=== PATIENT | male | born 1930 | race Caucasian/White ===

== ENCOUNTER 2018-02-19 03:20 | Inpatient (IN) | payer MEDICARE ==
[2018-02-19] VITALS (8 sets, daily range): BP systolic 93–138; BP diastolic 46–74
[~2018-02-19] VITALS: Wt 82.7 kg
[2018-02-19 04:12] LABS: BASO # 0.1 10*3/uL (0.0-0.1); BASO % 0.8 % (0.0-1.0); EOS # 0.1 10*3/uL (0.0-0.4); EOS % 0.8 % (1.0-4.0); HEMOGLOBIN 17.7 g/dl (14.0-18.0); LYMPH # 0.7 10*3/uL (1.3-4.4); LYMPH % 7.4 % (27.0-41.0); MEAN CELL VOLUME 91.7 fl (80.0-94.0); MEAN CORPUSCULAR HGB 30.1 pg (27.0-31.0); MEAN CORPUSCULAR HGB CONC 32.8 g/dl (33.0-37.0); MEAN PLATELET VOLUME 10.5 fl (9.6-12.3); MONO # 0.9 10*3/uL (0.1-1.0); MONO % 9.9 % (3.0-9.0); NEUT # 7.5 10*3/uL (2.3-7.9); NEUT % 80.8 % (47.0-73.0); PLATELET COUNT AUTOMATED 163 10*3/uL (130-400); RED BLOOD COUNT 5.89 10*6/uL (4.50-5.90); RED CELL DISTRI WIDTH 13.9 % (0-14.5); WHITE BLOOD COUNT 9.3 10*3/uL (4.8-10.8)
[2018-02-19 04:27] LABS: ACT PARTIAL THROMBO TIME 20.7 SECONDS (20.8-31.5)
[2018-02-19 04:29] LABS: ALBUMIN 4.2 gm/dl (3.1-4.5); ALKALINE PHOSPHATASE 67 U/L (45-117); BUN 25 mg/dl (7-24); CHLORIDE 104 mmol/L (98-107); CREATININE 2.01 mg/dL (0.70-1.30); POTASSIUM 5.3 mmol/L (3.5-5.1); SGOT/AST 63 IU/L (3-35); SGPT/ALT 89 U/L (12-78); SODIUM 138 mmol/L (136-145); TOTAL PROTEIN 8.3 gm/dL (6.4-8.2)
[2018-02-19 04:30] LABS: TROPONIN I < 0.015 ng/ml (<0.045)
[2018-02-19] MEDS ORDERED: FINASTERIDE5 M1 PO (04:46)
[2018-02-19] MEDS ORDERED: METOPROLOL TART50 M1 PO (04:46)
[2018-02-19] MEDS ORDERED: MEMANTINE HCL5 MG PO (04:47)
[2018-02-19] MEDS ORDERED: APRESOLINE10 MG PO (04:50)
[2018-02-19] MEDS ORDERED: LASIX20 MG PO (04:50)
[2018-02-19] MEDS ORDERED: ZOLOFT25 MG PO (04:51)
[2018-02-19] MEDS ORDERED: SIMVASTATIN20 MG PO (04:51)
[2018-02-19] MEDS ORDERED: VITAMIN B1250 MCG PO (04:52)
[2018-02-19] MEDS ORDERED: ARICEPT10 M1 PO (04:52)
[2018-02-19] MEDS ORDERED: PROBIOTIC250 MG PO (04:53)
[2018-02-19] MEDS ORDERED: VITAMIN D32000 UNIT PO (04:53)
[2018-02-19] MEDS ORDERED: COUMADIN3 M1 PO (04:53)
[2018-02-19] MEDS ORDERED: VITAMIN B COMP1 EAC1 PO (04:54)
[2018-02-19] MEDS ORDERED: KLOR-CON SPRIN10 MEQ PO (04:55)
[2018-02-19 07:14] LABS: BUN 25 mg/dl (7-24); CHLORIDE 106 mmol/L (98-107); CHOLESTEROL 152 mg/dL (<200); CREATININE 1.73 mg/dL (0.70-1.30); HDL CHOLESTEROL 62 mg/dl (40-60); LDL CHOLESTEROL 62 mg/dL (9-159); POTASSIUM 4.4 mmol/L (3.5-5.1); SODIUM 139 mmol/L (136-145); TRIGLYCERIDES 138 mg/dl (<150); VLDL CHOLESTEROL 28 mg/dL (6-40)
[2018-02-19 07:20] LABS: TROPONIN I < 0.015 ng/ml (<0.045)
[2018-02-19 08:20] LABS: VITAMIN D, 25-HYDROXY 32.9 ng/mL (30-100)
[2018-02-20] VITALS: BP 96/51
[2018-02-20 06:22] LABS: BASO % 0.1 % (0.0-1.0); LYMPH # 0.6 10*3/uL (1.3-4.4); LYMPH % 5.3 % (27.0-41.0); MEAN CELL VOLUME 90.4 fl (80.0-94.0); MEAN CORPUSCULAR HGB 30.2 pg (27.0-31.0); MEAN CORPUSCULAR HGB CONC 33.4 g/dl (33.0-37.0); MEAN PLATELET VOLUME 10.8 fl (9.6-12.3); MONO # 0.9 10*3/uL (0.1-1.0); MONO % 7.9 % (3.0-9.0); NEUT # 9.8 10*3/uL (2.3-7.9); NEUT % 86.2 % (47.0-73.0); PLATELET COUNT AUTOMATED 140 10*3/uL (130-400); RED CELL DISTRI WIDTH 13.9 % (0-14.5); WHITE BLOOD COUNT 11.3 10*3/uL (4.8-10.8)
[2018-02-20 06:24] LABS: HEMATOCRIT 41.6 % (42.0-52.0); HEMOGLOBIN 13.9 g/dl (14.0-18.0)
[2018-02-20 06:28] LABS: ALBUMIN 3.2 gm/dl (3.1-4.5); CREATININE 1.68 mg/dL (0.70-1.30); POTASSIUM 3.6 mmol/L (3.5-5.1)
[2018-02-20 06:30] LABS: PHOSPHOROUS 2.2 mg/dL (2.5-4.9); TOTAL PROTEIN 6.6 gm/dL (6.4-8.2)
[2018-02-20 06:38] LABS: ACT PARTIAL THROMBO TIME 21.3 SECONDS (20.8-31.5)
[2018-02-20 08:00] VITALS: BP 124/76
[2018-02-20 12:00] VITALS: BP 130/66
[2018-02-20 16:00] VITALS: BP 130/81
[2018-02-20 20:00] VITALS: BP 115/63
[2018-02-21] VITALS: BP 116/77
[2018-02-21 06:14] LABS: BASO % 0.4 % (0.0-1.0); EOS # 0.1 10*3/uL (0.0-0.4); EOS % 0.9 % (1.0-4.0); HEMATOCRIT 44.2 % (42.0-52.0); HEMOGLOBIN 14.3 g/dl (14.0-18.0); LYMPH # 1.4 10*3/uL (1.3-4.4); LYMPH % 14.5 % (27.0-41.0); MEAN CELL VOLUME 90.8 fl (80.0-94.0); MEAN CORPUSCULAR HGB 29.4 pg (27.0-31.0); MEAN CORPUSCULAR HGB CONC 32.4 g/dl (33.0-37.0); MEAN PLATELET VOLUME 10.8 fl (9.6-12.3); MONO % 10.1 % (3.0-9.0); NEUT # 7.1 10*3/uL (2.3-7.9); NEUT % 73.8 % (47.0-73.0); PLATELET COUNT AUTOMATED 138 10*3/uL (130-400); RED BLOOD COUNT 4.87 10*6/uL (4.50-5.90); RED CELL DISTRI WIDTH 14.2 % (0-14.5); WHITE BLOOD COUNT 9.7 10*3/uL (4.8-10.8)
[2018-02-21 06:30] LABS: CREATININE 1.48 mg/dL (0.70-1.30); PHOSPHOROUS 2.8 mg/dL (2.5-4.9); POTASSIUM 3.8 mmol/L (3.5-5.1)
[2018-02-21 08:00] VITALS: BP 118/78
[2018-02-21 12:00] VITALS: BP 111/77
[2018-02-21 16:00] VITALS: BP 134/77
[2018-02-21 20:00] VITALS: BP 111/74
[2018-02-22] VITALS: BP 152/58
[2018-02-22 07:06] LABS: INTERNATIONAL NORM RATIO 1.9 (2.0-3.5)
[2018-02-22 08:00] VITALS: BP 122/78
[2018-02-22] MEDS ORDERED: COUMADIN6 M2 PO (11:35)
[2018-02-22] MEDS ORDERED: PREDNISONE10 MG PO (11:35)
[2018-02-22] MEDS ORDERED: DOXYCYCLINE100 M3 PO (11:35)
[2018-02-22] MEDS ORDERED: TAMIFLU 75MG CA75 MG PO (11:35)
[2018-02-22 12:00] VITALS: BP 125/65
== END 2018-02-22 14:37 | disposition home or self-care (01) | DRG 871 ==
LOC: ED 03:20 → EDHOLD 04:39 → 4E 04:39
PROVIDERS: Internal Medicine; Registered Nurse; Student in an Organized Health Care Education/Training Program
DX: A41.9 Sepsis, unspecified organism (principal); N17.0 Acute kidney failure with tubular necrosis; G93.41 Metabolic encephalopathy; E87.5 Hyperkalemia; D68.59 Other primary thrombophilia; I48.2 Chronic atrial fibrillation; I50.9 Heart failure, unspecified; E86.0 Dehydration; I11.0 Hypertensive heart disease with heart failure; J45.901 Unspecified asthma with (acute) exacerbation; J10.1 Influenza due to other identified influenza virus with other respiratory manifestations; D72.810 Lymphocytopenia; E53.8 Deficiency of other specified B group vitamins; S60.511A Abrasion of right hand, initial encounter; G30.9 Alzheimer's disease, unspecified; F02.80 Dementia in other diseases classified elsewhere, unspecified severity, without behavioral disturbance, psychotic disturbance, mood disturbance, and anxiety; Z66 Do not resuscitate; Z51.5 Encounter for palliative care; I95.1 Orthostatic hypotension; S00.91XA Abrasion of unspecified part of head, initial encounter; S80.211A Abrasion, right knee, initial encounter; R74.0 Nonspecific elevation of levels of transaminase and lactic acid dehydrogenase [LDH]; R73.9 Hyperglycemia, unspecified; M47.812 Spondylosis without myelopathy or radiculopathy, cervical region; E55.9 Vitamin D deficiency, unspecified; E78.5 Hyperlipidemia, unspecified; E66.9 Obesity, unspecified; W18.30XA Fall on same level, unspecified, initial encounter; Y93.89 Activity, other specified; Y92.89 Other specified places as the place of occurrence of the external cause; Z68.30 Body mass index [BMI] 30.0-30.9, adult; Y99.8 Other external cause status; Z79.01 Long term (current) use of anticoagulants; Z79.899 Other long term (current) drug therapy